=== PATIENT | male | born 1960 | race Caucasian/White ===

== ENCOUNTER 2017-05-12 13:03 | Emergency (ER) | payer MEDICAID ==
[2017-05-12 13:20] VITALS: BP 146/92
--- NOTE | 2017-05-12 13:26 | EDM.PDOC ---
ED HPI GENERAL MEDICAL PROBLEM - General Chief Complaint: Neuro Symptoms/Deficits Stated Complaint: NUMBNESS ON LT SIDE Time Seen by Provider: 05/12/17 13:26 Source of Information: Reports: Patient History Limitations: Reports: No Limitations - History of Present Illness INITIAL COMMENTS - FREE TEXT/NARRATIVE: pt arrived with pain numbness in the left facil area anf left arm and neck. Onset: Other (past 2-3 days. ) Duration: Day(s):, Resolved Prior to Arrival Location: Reports: Face, Neck, Upper Extremity, Left Associated Symptoms: Reports: No Other Symptoms - Related Data Allergies Allergy/AdvReac Type Severity Reaction Status Date / Time aspirin Allergy Hives Verified 03/16/16 01:17 Penicillins Allergy Hives Verified 03/16/16 01:25 Home Meds: Home Meds Acetaminophen [Tylenol Arthritis] 1,300 mg PO DAILY PRN 03/16/16 [History] Allopurinol 300 mg PO DAILY 03/16/16 [History] Lisinopril 10 mg PO DAILY 03/16/16 [History] Carvedilol [Carvedilol] 6.25 mg PO BID 05/12/17 [History] Clopidogrel Bisulfate [Clopidogrel] 75 mg PO DAILY 05/12/17 [History] atorvaSTATin [Lipitor] 20 mg PO DAILY 05/12/17 [History] Past Medical History HEENT History: Reports: Impaired Vision Cardiovascular History: Reports: Hypertension Genitourinary History: Reports: Renal Calculus Musculoskeletal History: Reports: Gout - Infectious Disease History Infectious Disease History: Reports: Chicken Pox - Past Surgical History GI Surgical History: Reports: Hernia Repair/Other Social & Family History - Family History Cardiac: Reports: CAD - Tobacco Use Smoking Status *Q: Never Smoker - Caffeine Use Caffeine Use: Reports: Coffee - Recreational Drug Use Recreational Drug Use: No ED ROS GENERAL - Review of Systems Review Of Systems: See Below Constitutional: Reports: No Symptoms HEENT: Reports: No Symptoms Respiratory: Reports: No Symptoms Cardiovascular: Reports: No Symptoms Endocrine: Reports: No Symptoms GI/Abdominal: Reports: No Symptoms : Reports: No Symptoms Musculoskeletal: Reports: Other (pain in left post cervical area. He has a large knot over the left brachial plexus area. ) Skin: Reports: No Symptoms ED EXAM, NEURO - Physical Exam Exam: See Below Text/Narrative:: Pt arrived with numbness in the left rm. Perhaps slight decrease in strength. He has full use of the arm. he has numbness in the left facial area and left side of the neck. Exam Limited By: No Limitations General Appearance: Alert, No Apparent Distress Ears: Normal TMs Nose: Normal Inspection Throat/Mouth: Normal Inspection Head Exam: Atraumatic Neck: Other (numbness on the left side of the neck. He has a large muscle knot on the left side. This muscle area is very tender. ) Respiratory/Chest: No Respiratory Distress Cardiovascular: Regular Rate, Rhythm GI/Abdominal: Soft, Non-Tender (Male) Exam: Deferred Neurological: Alert, Normal Mood/Affect, Normal Gait Back Exam: Normal Inspection Extremities: Other (pt has normal strength in both legs. ) Psychiatric: Normal Affect Course - Vital Signs Last Recorded V/S: Last Vital Signs Temp 36.5 C 05/12/17 13:20 Pulse 73 05/12/17 13:20 Resp 16 05/12/17 13:20 BP 146/92 H 05/12/17 13:20 Pulse Ox 94 L 05/12/17 13:20 - Orders/Labs/Meds Labs: Laboratory Tests 05/12/17 05/12/17 Range/Units 13:38 13:38 WBC 6.2 (4.5-11.0) K/uL RBC 5.18 (4.30-5.90) M/uL Hgb 15.7 H (12.0-15.0) g/dL Hct 44.9 (40.0-54.0) % MCV 87 (80-98) fL MCH 30 (27-31) pg MCHC 35 (32-36) % Plt Count 162 (150-400) K/uL Neut % (Auto) 63 (36-66) % Lymph % (Auto) 25 (24-44) % [place] % (Auto) 10 H (2-6) % Eos % (Auto) 2 (2-4) % Baso % (Auto) 0 (0-1) % Sodium 140 (140-148) mmol/L Potassium 4.0 (3.6-5.2) mmol/L Chloride 104 (100-108) mmol/L Carbon Dioxide 25 (21-32) mmol/L Anion Gap 11.2 (5.0-14.0) mmol/L BUN 17 (7-18) mg/dL Creatinine 1.0 (0.8-1.3) mg/dL Est Cr Clr Drug Dosing 86.80 mL/min Estimated GFR (MDRD) > 60 (>60) Glucose 105 (74-106) mg/dL Calcium 9.1 (8.5-10.1) mg/dL Total Bilirubin 0.8 D (0.2-1.0) mg/dL AST 18 D (15-37) U/L ALT 29 (12-78) U/L Alkaline Phosphatase 57 (46-116) U/L Total Protein 6.8 (6.4-8.2) g/dL Albumin 3.9 (3.4-5.0) g/dL Globulin 2.9 (2.3-3.5) g/dL Albumin/Globulin Ratio 1.3 (1.2-2.2) - Re-Assessments/Exams Free Text/Narrative Re-Assessment/Exam: 05/12/17 15:03 pt was found to have normal labs. He had a cat scan of the head and neck. The head scan was normal, The cervical spine was normal except some degenerative changes. He was found to have a large muscle knot in the left post cervical area by the brachial plexus. Departure - Departure Time of Disposition: 15:05 Disposition: Home, Self-Care 01 Clinical Impression: Muscle spasm - Discharge Information Referrals: Blayne Posada PA-C [Primary Care Provider] - Forms: ED Department Discharge Care Plan Goals: moist warm heat to the left post cervical area, massage to the area. If persistent symptoms start Pt next week. flexeril 10mg 1 tab hs to relax the muscles, rtc if further symptoms develop
--- NOTE | 2017-05-12 14:30 | CT ---
Head wo Cont HISTORY: Numbness left face and left arm COMPARISON: None TECHNIQUE: Noncontrast enhanced axial cuts were obtained of the brain. Total DLP: 1363. FINDINGS:There is no cerebral or subdural hemorrhage. There is no mass effect or edema. The ventricle s and CSF spaces are appropriate for age. No space occupying lesions are demonstrated. The orbital st ructures are unremarkable. The sinuses demonstrate normal aeration. IMPRESSION: Negative exam.
--- NOTE | 2017-05-12 14:34 | CT ---
C-SPINE CT. HISTORY: Left arm numbness. TECHNIQUE: Axial cuts are obtained through the cervical spine. Sagittal and coronal images were recon structed. Total DLP: 1363 FINDINGS: The cervical vertebrae demonstrate normal alignment. The vertebral bodies are normal in height. The p osterior elements are intact. No posttraumatic findings are demonstrated. There is mild degenerative disc space during at the C 5/6 and C6/7 levels. Prominent anterior endpla te osteophytes are present at C6/7. There are no findings of spinal or foraminal stenosis. The prever tebral soft tissues are normal in thickness. IMPRESSION: 1. Mild degenerative findings as described above. There is no spinal or foraminal stenosis.
== END 2017-05-12 15:23 | disposition home or self-care (01) ==
LOC: JP.ED 13:03
DX: M62.838 Other muscle spasm (principal); M47.812 Spondylosis without myelopathy or radiculopathy, cervical region; I10 Essential (primary) hypertension; Z79.82 Long term (current) use of aspirin; Z88.0 Allergy status to penicillin; Z88.6 Allergy status to analgesic agent; Z79.899 Other long term (current) drug therapy
CPT/HCPCS: 36415; 70450; 70450-26; 72125; 72125-26; 80053; 85025; 99284-25

== ENCOUNTER 2018-05-16 06:25 | Day surgery (SDC) | payer MEDICAID ==
[2018-05-16] MEDS ORDERED: Lactated Ringers 1,000 ML IV SCH (06:50)
[2018-05-16] MEDS ORDERED: Propofol 200 MG/20 ML SDV ONE (07:24)
[2018-05-16] MEDS ORDERED: Midazolam 1 MG/ML 2 ML SDV ONE (07:25)
[2018-05-16] MEDS ORDERED: fentaNYL 100 MCG/2 ML SDV ONE (07:25)
[2018-05-16 09:55] VITALS: BP 108/71
--- NOTE | 2018-05-16 11:37 | OR ---
DATE OF PROCEDURE: 05/16/2018 PREOPERATIVE DIAGNOSIS: Colon cancer screening. POSTOPERATIVE DIAGNOSIS: Diverticulosis. PROCEDURE: Colonoscopy to the cecum. surgeon: Narciso Orozco MD. ANESTHESIA: IV anesthesia with monitored anesthesia care. INDICATIONS: This 58-year-old white male is referred for a colonoscopy for colon cancer screening. He has never had a colonoscopic exam. I counseled him for the procedure including risks and alternatives, and he gave his informed consent to proceed. DESCRIPTION OF PROCEDURE: The patient was placed in the left lateral decubitus position. IV anesthesia was administered by the Anesthesia Service. Time-out was held. A rectal exam was performed, which was unremarkable. The flexible video Olympus colonoscope was introduced through his anus, up his rectum and out his colon all the way to the cecum. En route, we saw multiple left-sided diverticula. There was no bleeding or inflammation associated with any of them. Once the cecum was reached, the scope was slowly withdrawn examining the mucosa throughout. No mucosal abnormalities, other than the previously mentioned diverticula, were seen. The scope was retroflexed in the rectum with the distal rectum appearing unremarkable. The scope was straightened and removed. He tolerated the procedure well. Narciso Orozco MD /[id number] MTDDonte
== END 2018-05-16 09:55 | disposition home or self-care (01) ==
LOC: JP.SDS 06:25
PROVIDERS: ATTEND Surgery
DX: Z12.11 Encounter for screening for malignant neoplasm of colon (principal); K57.30 Diverticulosis of large intestine without perforation or abscess without bleeding; I10 Essential (primary) hypertension; E66.9 Obesity, unspecified; G47.33 Obstructive sleep apnea (adult) (pediatric); Z99.89 Dependence on other enabling machines and devices; Z87.891 Personal history of nicotine dependence; Z88.6 Allergy status to analgesic agent; Z88.0 Allergy status to penicillin
CPT/HCPCS: 45378; J2250; J2704; J3010; J7120

== ENCOUNTER 2018-08-21 09:47 | Emergency (ER) | payer MEDICAID ==
--- NOTE | 2018-08-21 10:38 | EDM.PDOC ---
ED HPI GENERAL MEDICAL PROBLEM - General Chief Complaint: Back Pain or Injury Stated Complaint: RIGHT RIB PAIN Time Seen by Provider: 08/21/18 10:15 Source of Information: Reports: Patient, Family History Limitations: Reports: No Limitations - History of Present Illness INITIAL COMMENTS - FREE TEXT/NARRATIVE: 50-year-old male with generalized upper body discomfort for the past week. It started when he was stepping out of the vehicle and turning he felt a pop sensation over the right lateral chest wall. Since that time he has developed upper abdominal discomfort, back pain, bilateral shoulder discomfort especially with moving. Some soreness with a deep breath but no shortness of breath, his upper abdomen feels full with nausea. Bowels are moving, no rashes, no fevers or chills. Denies cough. Onset: Sudden (Symptoms started a week ago) Location: Reports: Chest, Abdomen, Back Quality: Reports: Ache, Stabbing (With motion) Improves with: Reports: None Worsens with: Reports: Breathing, Movement Associated Symptoms: Reports: Nausea/Vomiting (No vomiting but persistent nausea ). Denies: Confusion, Cough, Diaphoresis, Fever/Chills, Headaches, Shortness of Breath right back Pain Score (Numeric/FACES): 8 - Related Data Allergies Allergy/AdvReac Type Severity Reaction Status Date / Time aspirin Allergy Hives Verified 08/21/18 10:05 Penicillins Allergy Hives Verified 08/21/18 10:05 Home Meds: Home Meds Acetaminophen [Tylenol Arthritis] 1,300 mg PO DAILY PRN 03/16/16 [History] Allopurinol 300 mg PO DAILY 03/16/16 [History] Lisinopril 5 mg PO DAILY 03/16/16 [History] Carvedilol 6.25 mg PO BID 05/12/17 [History] Clopidogrel Bisulfate [Clopidogrel] 75 mg PO DAILY 05/12/17 [History] atorvaSTATin [Lipitor] 20 mg PO DAILY 05/12/17 [History] Cholecalciferol (Vitamin D3) [Decara] 50,000 unit PO .Q7D 05/14/18 [History] metroNIDAZOLE [metroNIDAZOLE 0.75% Cream] 1 applic TOP BID 05/14/18 [History] Past Medical History HEENT History: Reports: Impaired Vision Cardiovascular History: Reports: Hypertension, Other (See Below) Other Cardiovascular History: broken heart syndrome Respiratory History: Reports: Sleep Apnea Gastrointestinal History: Reports: None Genitourinary History: Reports: Renal Calculus Musculoskeletal History: Reports: Gout - Infectious Disease History Infectious Disease History: Reports: Chicken Pox - Past Surgical History Cardiovascular Surgical History: Reports: None Respiratory Surgical History: Reports: None GI Surgical History: Reports: Colonoscopy, Hernia Repair/Other Male Surgical History: Reports: None Musculoskeletal Surgical History: Reports: None Social & Family History - Family History Family Medical History: Noncontributory Cardiac: Reports: CAD - Tobacco Use Smoking Status *Q: Never Smoker - Caffeine Use Caffeine Use: Reports: Coffee - Recreational Drug Use Recreational Drug Use: No ED ROS GENERAL - Review of Systems Review Of Systems: See Below Constitutional: Denies: Fever, Chills HEENT: Reports: No Symptoms Respiratory: Reports: Pleuritic Chest Pain. Denies: Shortness of Breath, Cough Cardiovascular: Reports: Chest Pain GI/Abdominal: Reports: Abdominal Pain (Upper abdominal pain only around the epigastric area) : Reports: No Symptoms Musculoskeletal: Reports: Back Pain, Muscle Pain Skin: Reports: No Symptoms. Denies: Rash Neurological: Denies: Dizziness, Headache ED EXAM, GENERAL - Physical Exam Exam: See Below Exam Limited By: No Limitations General Appearance: Alert, No Apparent Distress Head: Atraumatic Respiratory/Chest: No Respiratory Distress, Lungs Clear, Other (Some increased pain with lateral chest compression bilaterally) Cardiovascular: Regular Rate, Rhythm. No: Extra Beats GI/Abdominal: Soft, Tender (Mild discomfort to palpation over the epigastric area without guarding) Extremities: No Pedal Edema Neurological: Alert, Oriented Psychiatric: Normal Affect, Normal Mood Skin Exam: Warm, Dry (No rash over painful area) Course - Vital Signs Last Recorded V/S: Last Vital Signs Temp 96 F 08/21/18 10:08 Pulse 62 08/21/18 11:15 Resp 12 08/21/18 10:08 BP 160/81 H 08/21/18 11:15 Pulse Ox 96 08/21/18 10:08 - Orders/Labs/Meds Labs: Laboratory Tests 08/21/18 08/21/18 08/21/18 Range/Units 10:42 10:42 10:42 WBC 9.7 (4.5-11.0) K/uL RBC 5.20 (4.30-5.90) M/uL Hgb 15.5 H (12.0-15.0) g/dL Hct 46.2 (40.0-54.0) % MCV 89 (80-98) fL MCH 30 (27-31) pg MCHC 34 (32-36) % Plt Count 167 (150-400) K/uL Neut % (Auto) 82 H (36-66) % Lymph % (Auto) 11 L (24-44) % [place] % (Auto) 6 (2-6) % Eos % (Auto) 1 L (2-4) % Baso % (Auto) 0 (0-1) % Sodium 140 (140-148) mmol/L Potassium 4.4 (3.6-5.2) mmol/L Chloride 103 (100-108) mmol/L Carbon Dioxide 26 (21-32) mmol/L Anion Gap 11.1 (5.0-14.0) mmol/L BUN 15 (7-18) mg/dL Creatinine 1.1 (0.8-1.3) mg/dL Est Cr Clr Drug Dosing 70.82 mL/min Estimated GFR (MDRD) > 60 (>60) Glucose 147 H (74-106) mg/dL Calcium 9.2 (8.5-10.1) mg/dL Total Bilirubin 0.5 (0.2-1.0) mg/dL AST 25 (15-37) U/L ALT 42 (12-78) U/L Alkaline Phosphatase 73 (46-116) U/L Creatine Kinase 148 (39-308) U/L Troponin I < 0.017 (0.000-0.056) ng/mL Total Protein 7.9 (6.4-8.2) g/dL Albumin 4.2 (3.4-5.0) g/dL Globulin 3.7 H (2.3-3.5) g/dL Albumin/Globulin Ratio 1.1 L (1.2-2.2) - Re-Assessments/Exams Free Text/Narrative Re-Assessment/Exam: 08/21/18 10:37 CBC, CMP, CK and a two-view chest x-ray were obtained. 08/21/18 11:24 All his labs are reassuring, CK and troponin are negative. Two-view chest x-ray is normal. Patient's blood pressure normalized while in the emergency room. I recommended 2 Aleve twice a day for the next couple of days and increase activity as tolerated and return anytime if worsening. He can also recheck in 2- 3 days if not improving satisfactorily. Departure - Departure Time of Disposition: 11:32 Disposition: Home, Self-Care 01 Condition: Good Clinical Impression: Myalgia - Discharge Information Instructions: Muscle Pain, Adult Referrals: Minda Greenfield MD [Primary Care Provider] - Forms: ED Department Discharge Care Plan Goals: Continue your current medications and try two Aleve twice daily for the next 2- 3 days. Increase activity as tolerated, and return anytime if worsening or consider rechecking in 3 days if not improving satisfactorily.
--- NOTE | 2018-08-21 11:13 | CRLCR ---
INDICATION: Dyspnea. COMPARISON: Portable AP chest 03/16/2016. TECHNIQUE: Two-view chest. FINDINGS: Normal size cardiac silhouette. Clear lung hall with no evidence of acute pneumonic infiltrates or CHF. No pneumothorax or pleural effusion. IMPRESSION: No acute pathology. Dictated by Naomi Ascencio MD @ Aug 21 2018 11:11AM Signed by Dr. Naomi Ascencio @ Aug 21 2018 11:12AM
[2018-08-21 11:32] VITALS: BP 160/81
== END 2018-08-21 11:32 | disposition home or self-care (01) ==
LOC: JP.ED 09:47
DX: M79.18 Myalgia, other site (principal); I10 Essential (primary) hypertension; Z88.8 Allergy status to other drugs, medicaments and biological substances; Z79.899 Other long term (current) drug therapy
CPT/HCPCS: 36415; 71046; 80053; 82550; 84484; 85025; 99283-25